=== PATIENT | female | born 2000 | race Caucasian/White ===

== ENCOUNTER 2020-07-19 05:47 | Day surgery (SDC) | payer BC, OTHER ==
[2020-07-11 15:14] LABS: BASOPHILS # (AUTO) 0.1 X10'3 (0-0.2); BASOPHILS % (AUTO) 0.4 % (0-1); EOSINOPHILS # (AUTO) 0.2 X10'3 (0-0.9); EOSINOPHILS % (AUTO) 1.1 % (0-6); LYMPHOCYTES # (AUTO) 3.3 X10'3 (1.1-4.8); LYMPHOCYTES % (AUTO) 22.2 % (21-51); MEAN CORPUSCULAR HEMOGLOBIN 30.4 PG (27.0-31.0); MEAN CORPUSCULAR HGB CONC 33.5 g/dL (33.0-36.5); MEAN CORPUSCULAR VOLUME 90.8 FL (78-98); NEUTROPHILS # (AUTO) 10.2 X10'3 (1.8-7.7); NEUTROPHILS % (AUTO) 69.3 % (42-75); PRE OP HEMATOCRIT 40.5 % (35.0-45.0); PRE OP HEMOGLOBIN 13.6 g/dL (12.0-16.0); PRE OP PLATELET COUNT 372 X10'3 (140-440); RED BLOOD COUNT 4.45 X10'6 (4.20-5.60)
[2020-07-11 15:21] LABS: CLARITY,URINE SLIGHTLY CLOUDY (Clear); COLOR,URINE YELLOW (Yellow); GLUCOSE, URINE NEGATIVE (Neg); KETONES,URINE NEGATIVE (Neg); LEUKOCYTE ESTERASE ,URINE NEGATIVE (Neg); NITRITES, URINE NEGATIVE (Neg); OCCULT BLOOD,URINE NEGATIVE (Neg); PROTEIN,URINE NEGATIVE (Neg); UROBILINOGEN,URINE 0.2 E.U/dL (0.2-1.0)
[2020-07-11 15:26] LABS: ALBUMIN 3.8 G/DL (3.4-5.0); ALBUMIN/GLOBULIN RATIO 0.9 (1.1-1.5); ALKALINE PHOSPHATASE 107 IU/L (20-180); BLOOD UREA NITROGEN 10 MG/DL (7-18); CALCIUM 9.5 MG/DL (8.5-10.1); CHLORIDE 102 MMOL/L (99-107); CREATININE 0.77 MG/DL (0.40-0.90); PRE OP ALT 57 U/L (30-65); PRE OP ANION GAP 11 (8-16); PRE OP AST 30 U/L (10-37); PRE OP BILIRUB, TOTAL 0.2 MG/DL (0.0-1.0); PRE OP GLUCOSE 87 MG/DL (70-104); PRE OP POTASSIUM 3.9 MMOL/L (3.4-5.1); PRE OP SODIUM 140 MMOL/L (135-145); TOTAL CARBON DIOXIDE 27.2 MMOL/L (24-32); TOTAL PROTEIN 8.2 G/DL (6.4-8.2); eGFR > 90 ML/MIN
[2020-07-11 15:34] LABS: UA COLLECTION TYPE CLN CATCH MIDSTREAM
[2020-07-11 15:35] LABS: BACTERIA,URINE 1+ /HPF (Neg); MUCUS STRANDS MANY /LPF (Neg); SQUAMOUS EPITHELIAL CELL,UR MANY /LPF (FEW)
[2020-07-11 15:37] LABS: RBC,URINE 0-2 /HPF (0-2)
[2020-07-11 15:38] LABS: TRANSITIONAL EPI CELLS,URINE FEW /HPF
[2020-07-11 15:43] LABS: HCG SERUM QL NEGATIVE
[~2020-07-19] VITALS: Ht 165.1 cm; Wt 135.7 kg
[2020-07-19] VITALS (9 sets, daily range): BP systolic 117–153; BP diastolic 59–79
[~2020-07-19 05:47] MED LIST: NO HOME MEDS; ceFAZolin 2gm in dextrose, iso 50 ML IV ONE; famotidine 20mg tablet PO ONE; ringers solution, lacted 1,000 ML IV SCH
[2020-07-19] MEDS ORDERED: midazolam 2 mg/2 ml injection ONE (06:48)
[2020-07-19] MEDS ORDERED: fentaNYL /PF 50mcg/ml 5ml ampule ONE (06:49)
[2020-07-19] MEDS ORDERED: ROPIVAcaine 0.5% (5mg/ml) 30ml vial ONE ×3 (06:51→07:28)
[2020-07-19] MEDS ORDERED: cloNIDine hcl/PF 100mcg/ml inj ONE (06:51)
[2020-07-19] MEDS ORDERED: ALBUTEROL INHALER 1 PUFF/90 MCG INHALER IH ONE (06:53)
[2020-07-19] MEDS ORDERED: sevoflurane 250ml liquid IH ONE (06:53)
[2020-07-19] MEDS ORDERED: ondansetron/PF 4mg/2ml inj ONE (07:28)
[2020-07-19] MEDS ORDERED: rocuronium 10mg/ml inj IV ONE (07:28)
[2020-07-19] MEDS ORDERED: dexamethasone sod phosphate 4mg/ml inj. ONE (07:28)
[2020-07-19] MEDS ORDERED: propofol inj 20 ML IV ONE (07:28)
[2020-07-19] MEDS ORDERED: LIDOcaine 2% (20mg/ml) 5ml vial ONE (07:28)
[2020-07-19] MEDS ORDERED: ceFAZolin 1000mg inj ONE (07:30)
[2020-07-19] MEDS ORDERED: labetalol 20mg/4ml (5mg/ml) syringe IV PRN (08:55)
[2020-07-19] MEDS ORDERED: morphine 4 MG/ML inj SYRINge IV PRN (08:55)
[2020-07-19] MEDS ORDERED: ondansetron/PF 4mg/2ml inj IV PRN (08:55)
[2020-07-19] MEDS ORDERED: acetaminophen 1,000mg/100ml IV 100 ML IV PRN (08:55)
[2020-07-19] MEDS ORDERED: ringers solution, lacted 1,000 ML IV SCH (08:55)
[2020-07-19] MEDS ORDERED: morphine 2 MG/ML inj. syringe IV PRN (08:55)
[2020-07-19] MEDS ORDERED: hydrALAZINE 20mg/ml inj. IV PRN (08:55)
[2020-07-19] MEDS ORDERED: proCHLORperazine 10 MG/2 ml inj IV PRN (08:55)
[2020-07-19] MEDS ORDERED: meperidine/PF 25mg/ml syringe IV PRN ×3 (08:55)
[2020-07-19] MEDS ORDERED: bacitracin 15gm ointment TP ONE (08:56)
[2020-07-19] MEDS ORDERED: morphine 10mg/ml inj. ONE (10:04)
[2020-07-19] MEDS ORDERED: acetaminophen 1,000mg/100ml IV 100 ML IV ONE (10:05)
--- NOTE | 2020-07-19 11:00 | NUR ---
Received from OR via BED, accompanied by Anesthesiologist DR HOLLAND and report given by Anesthesiolgist. PATIENT A&OX4, DENIES PAIN, V/S WNL, NEUROVASCULAR CHECKS INTACT, 20G PIV RUE, SCD ON, DRESSING SPLINT TO LEFT ANKLE CDI ELEVATED WITH ICEBAG APPLIED.
--- NOTE | 2020-07-19 12:10 | NUR ---
PATIENT A&OX4, DENIES PAIN, V/S WNL, NEUROVASCULAR CHECKS INTACT, 20G PIV RUE D/C, SCD OFF, DRESSING SPLINT TO LEFT ANKLE CDI ELEVATED WITH ICEBAG APPLIED. I HAVE REVIEWED D/C INSTRUCTIONS WITH PATIENT AND FAMILY AND THEY HAVE VERBALIZED UNDERSTANDING. PATIENT D/C HOME WITH ALL BELONGINGS AND FAMILY GAVE TRANSPORT HOME.
== END 2020-07-19 12:10 | disposition home or self-care (01) ==
LOC: PAS 05:47
PROVIDERS: ATTEND Podiatrist Foot & Ankle Surgery
DX: T84.84XA Pain due to internal orthopedic prosthetic devices, implants and grafts, initial encounter (principal); M25.572 Pain in left ankle and joints of left foot; M19.072 Primary osteoarthritis, left ankle and foot; M76.72 Peroneal tendinitis, left leg; M25.372 Other instability, left ankle; M25.472 Effusion, left ankle; Z98.1 Arthrodesis status; G89.18 Other acute postprocedural pain
CPT/HCPCS: 20680; 27698; 28740; 29898; 36415; 64445; 64447; 73600; 76000; 76942; 80053; 81001; 82948; 84703; 85025; 87635; 93005; A6222; A6223; C1713; J0131; J0690; J0735; J1100; J2001; J2250; J2270; J2405; J2704; J3010; A4215; A4618; A6253; A6449; A7000; J2795; J7120

== ENCOUNTER 2021-06-13 08:01 | Day surgery (SDC) | payer OTHER, BC ==
[2021-06-12 11:53] LABS: BASOPHILS # (AUTO) 0.1 X10'3 (0-0.2); BASOPHILS % (AUTO) 0.4 % (0-1); EOSINOPHILS # (AUTO) 0.2 X10'3 (0-0.9); EOSINOPHILS % (AUTO) 1.1 % (0-6); LYMPHOCYTES # (AUTO) 3.5 X10'3 (1.1-4.8); LYMPHOCYTES % (AUTO) 24.8 % (21-51); MEAN CORPUSCULAR HEMOGLOBIN 29.6 PG (27.0-31.0); MEAN CORPUSCULAR HGB CONC 32.5 g/dL (33.0-36.5); MEAN PLATELET VOLUME 8.4 FL (7.4-10.4); MONOCYTES # (AUTO) 0.8 X10'3 (0-0.9); MONOCYTES % (AUTO) 5.4 % (2-12); NEUTROPHILS # (AUTO) 9.8 X10'3 (1.8-7.7); NEUTROPHILS % (AUTO) 68.3 % (42-75); PRE OP HEMOGLOBIN 13.3 g/dL (12.0-16.0); PRE OP PLATELET COUNT 336 X10'3 (140-440); RED CELL DISTRIBUTION WIDTH 13.5 % (11.5-14.5)
[2021-06-12 12:08] LABS: CLARITY,URINE SLIGHTLY CLOUDY (Clear); COLOR,URINE YELLOW (Yellow); PROTEIN,URINE NEGATIVE (Neg); UA COLLECTION TYPE CLN CATCH MIDSTREAM
[2021-06-12 12:09] LABS: GLUCOSE, URINE NEGATIVE (Neg); KETONES,URINE NEGATIVE (Neg); LEUKOCYTE ESTERASE ,URINE NEGATIVE (Neg); NITRITES, URINE NEGATIVE (Neg); OCCULT BLOOD,URINE NEGATIVE (Neg); UROBILINOGEN,URINE 0.2 E.U/dL (0.2-1.0)
[2021-06-12 12:10] LABS: ALBUMIN 3.6 G/DL (3.4-5.0); ALBUMIN/GLOBULIN RATIO 0.8 (1.1-1.5); ALKALINE PHOSPHATASE 110 IU/L (20-180); BLOOD UREA NITROGEN 9 MG/DL (7-18); BUN/CREATININE RATIO 11.7 (6.6-38.0); CALCIUM 9.2 MG/DL (8.5-10.1); CHLORIDE 105 MMOL/L (99-107); CREATININE 0.77 MG/DL (0.40-0.90); PRE OP ALT 51 U/L (30-65); PRE OP ANION GAP 9 (8-16); PRE OP AST 24 U/L (10-37); PRE OP BILIRUB, TOTAL 0.3 MG/DL (0.0-1.0); PRE OP GLUCOSE 84 MG/DL (70-104); PRE OP POTASSIUM 4.1 MMOL/L (3.4-5.1); PRE OP SODIUM 142 MMOL/L (135-145); TOTAL CARBON DIOXIDE 28.5 MMOL/L (24-32); TOTAL PROTEIN 8.1 G/DL (6.4-8.2); eGFR > 90 ML/MIN
[2021-06-12 12:19] LABS: HCG SERUM QL NEGATIVE
[2021-06-12 12:28] LABS: BACTERIA,URINE 2+ /HPF (Neg); MUCUS STRANDS MANY /LPF (Neg); RBC,URINE 0-2 /HPF (0-2); SQUAMOUS EPITHELIAL CELL,UR MODERATE /LPF (FEW); WBC,URINE 0-4 /HPF (0-4)
[2021-06-13] VITALS (9 sets, daily range): BP systolic 117–152; BP diastolic 69–84
[~2021-06-13] VITALS: Ht 167.6 cm; Wt 139.0 kg
[~2021-06-13 08:01] MED LIST changes: -ceFAZolin 2gm in dextrose, iso 50 ML IV ONE
[2021-06-13] MEDS ORDERED: ceFAZolin 1GM/D5W- ADD-VANTAGE 50 ML IV ONE (09:10)
[2021-06-13] MEDS ORDERED: cefazolin/dext.iso 2gm/100ml 100 ML IV ONE (09:10)
[2021-06-13] MEDS ORDERED: sevoflurane 250ml liquid IH ONE (11:26)
[2021-06-13] MEDS ORDERED: midazolam 1 mg/ML 2ml injection ONE (11:34)
[2021-06-13] MEDS ORDERED: fentaNYL /PF 50mcg/ml 5ml ampule ONE (11:36)
[2021-06-13] MEDS ORDERED: morphine 10mg/ml inj. ONE (12:21)
[2021-06-13] MEDS ORDERED: propofol inj 20 ML IV ONE ×2 (12:22)
[2021-06-13] MEDS ORDERED: dexamethasone sod phosphate 4mg/ml inj. ONE (12:22)
[2021-06-13] MEDS ORDERED: LIDOcaine 2% (20mg/ml) 5ml vial ONE (12:22)
[2021-06-13] MEDS ORDERED: ROPIVAcaine 0.5% (5mg/ml) 30ml vial ONE (12:22)
[2021-06-13] MEDS ORDERED: 0.9 % SODIUM CHLORIDE 10 ML VIAL ONE ×2 (12:22)
[2021-06-13] MEDS ORDERED: ondansetron/PF 4mg/2ml inj ONE (12:22)
[2021-06-13] MEDS ORDERED: rocuronium 10mg/ml inj IV ONE (12:22)
[2021-06-13] MEDS ORDERED: HYDROmorphone/PF 0.2 MG/ML SYRINGE IV PRN ×2 (12:40)
[2021-06-13] MEDS ORDERED: proCHLORperazine 10 MG/2 ml inj IV PRN (12:40)
[2021-06-13] MEDS ORDERED: ROPIVAcaine 0.2% (10 MG/5 ML) BOLUS INJECTION POPLITEAL PRN (12:40)
[2021-06-13] MEDS ORDERED: ROPIVAcaine 0.2%/PF PUMP/bolus 545 ML POPLITEAL SCH (12:40)
[2021-06-13] MEDS ORDERED: ondansetron/PF 4mg/2ml inj IV PRN (12:40)
[2021-06-13] MEDS ORDERED: ringers solution, lacted 1,000 ML IV SCH (12:40)
[2021-06-13] MEDS ORDERED: acetaminophen 1,000mg/100ml IV 100 ML IV PRN (12:40)
[2021-06-13] MEDS ORDERED: meperidine/PF 25mg/ml syringe IV PRN (12:40)
[2021-06-13] MEDS ORDERED: morphine 2 MG/ML inj. syringe IV PRN (12:40)
[2021-06-13] MEDS ORDERED: morphine 4 MG/ML inj SYRINge IV PRN (12:40)
[2021-06-13] MEDS ORDERED: labetalol 20mg/4ml (5mg/ml) syringe IV PRN (12:40)
[2021-06-13] MEDS ORDERED: hydrALAZINE 20mg/ml inj. IV PRN (12:40)
[2021-06-13] MEDS ORDERED: bacitracin 15gm ointment TP ONE (12:59)
[2021-06-13] MEDS ORDERED: glycopyrrolate 0.2mg/ml inj ONE (13:46)
[2021-06-13] MEDS ORDERED: neostigmine methylsulfate 1 MG/ML 10ml vial ONE (13:46)
[2021-06-13] MEDS ORDERED: flumazenil 0.1 mg/ml inj. IV ONE (14:05)
[2021-06-13] MEDS ORDERED: sugammadex 200mg/2ml injection IV ONE (14:13)
[2021-06-13] MEDS ORDERED: albuterol 60 PUFF/8GM Inhaler IH ONE (14:18)
--- NOTE | 2021-06-13 14:22 | NUR ---
Received from OR via [facility] , accompanied by Anesthesiologist AMALIA and report given by Anesthesiolgist. PATIENT WITH 20G PIV INLEFT UE RUNNING LR AT 100. 10L MASK ON WITH 96% SATURATIONS, LEFT LE IN SPLINT ON WITH TOES EXPOSED. + CAP REFILL. NO DRAINAGE PRESENT AT THIS TIME. Addendum: 06/13/21 at 1429 by Qasim León RN, RN Amended: Links added.
[2021-06-13] MEDS ORDERED: ipratropium/albuterol 3ml nebule NEB PRN (14:45)
[2021-06-13] MEDS ORDERED: furosemide 20 MG/2 ML vial IV ONE (15:15)
--- NOTE | 2021-06-13 15:52 | NUR ---
ALL DC CRITERIA FOR TRANSFER HOME HAS BEEN MET. VSS. PAIN AT A TOLERABLE LEVEL. PATIENT UNDERSTOOD ALL DC INSTRUCTIONS WELL MOM. PATIENT ABLE TO STAND PIVOT FROM BED TO COMMODE, DO SELF CARE AND GET DRESSED. PATIENT STILL PRESENTS WITH NAUSEA DESPITE MEDICATIONS. MEDICATION BANDAR CALLED IN TO [facility]IO. Addendum: 06/13/21 at 1647 by Qasim León RN, RN Amended: Links added.
== END 2021-06-13 15:52 | disposition home or self-care (01) ==
LOC: PAS 08:01
PROVIDERS: ATTEND Podiatrist Foot & Ankle Surgery
DX: M19.072 Primary osteoarthritis, left ankle and foot (principal); G89.18 Other acute postprocedural pain; J45.909 Unspecified asthma, uncomplicated; F31.9 Bipolar disorder, unspecified; F41.9 Anxiety disorder, unspecified; E66.9 Obesity, unspecified; Z68.42 Body mass index [BMI] 45.0-49.9, adult; Z79.899 Other long term (current) drug therapy; Z98.890 Other specified postprocedural states; Z79.82 Long term (current) use of aspirin; Z81.8 Family history of other mental and behavioral disorders
CPT/HCPCS: 20900; 28725; 36415; 64446; 64447; 73610; 76000; 76937; 76942; 80053; 81001; 82948; 84703; 85025; 94640; 94760; A6223; C1713; C1734; C1762; C9399; J0690; J1100; J1170; J1940; J2001; J2250; J2270; J2405; J2704; J2710; J3010; J7120; Z7506; Z7508; Z7512; A4618; A6449; A7000; J2795; J3490

== ENCOUNTER 2023-05-04 17:23 | Emergency (ER) | payer BC, OTHER ==
[~2023-05-04] VITALS: Ht 167.6 cm; Wt 138.2 kg
[~2023-05-04 17:23] MED LIST changes: -famotidine 20mg tablet PO ONE; -ringers solution, lacted 1,000 ML IV SCH
[2023-05-04 17:48] VITALS: BP 140/92; PULSE 83; RESP 16; TEMP 97.6; O2SAT 97
[2023-05-04] MEDS ORDERED: ACYC-1 PO (18:52)
== END 2023-05-04 19:37 | disposition home or self-care (01) ==
LOC: ER 17:24
DX: B00.89 Other herpesviral infection (principal); B00.2 Herpesviral gingivostomatitis and pharyngotonsillitis
CPT/HCPCS: 99283

== ENCOUNTER 2024-04-12 03:09 | Emergency (ER) | payer BC, OTHER ==
[~2024-04-12] VITALS: Ht 167.6 cm; Wt 133.6 kg
[2024-04-12 03:20] VITALS: BP 132/77; PULSE 52; RESP 14; TEMP 98.3; O2SAT 97
== END 2024-04-12 05:55 | disposition left against medical advice (07) ==
LOC: ER 03:10
DX: M54.9 Dorsalgia, unspecified (principal); Z53.21 Procedure and treatment not carried out due to patient leaving prior to being seen by health care provider